=== PATIENT | female | born 1960 | race Caucasian/White ===

== ENCOUNTER → 2017-03-30 | Outpatient (CLI) | payer OTHER ==
[~2017-03-30] MED LIST: CLARINEX-D12 HO1 T12 PO; COLACE 100100 MG/CAP PO; LASIX 20MG TABL20 MG PO; NASONEX SPRAY17 GM NS; NEXIUM24HROTC PO; PAXIL40 MG PO; PREMPRO 0.3 MG-1 TAB PO; SENNA8.6 MG PO; ULTRAM 50MG TAB50 MG PO; XANAX 1MG1 MG PO; ZESTORETIC 12.51 TA1 PO
== END ==
LOC: COL.RAD 09:00
DX: S22.080A Wedge compression fracture of T11-T12 vertebra, initial encounter for closed fracture (principal); K44.9 Diaphragmatic hernia without obstruction or gangrene; Z98.82 Breast implant status
CPT/HCPCS: A9585

== ENCOUNTER 2019-07-26 11:34 | Day surgery (SDC) | payer MEDICARE ==
[~2019-07-26] VITALS: Ht 157.5 cm; Wt 60.1 kg
[2019-07-26] VITALS (10 sets, daily range): BP systolic 91–125; BP diastolic 49–91; PULSE 105–112; TEMP 97.7–98.3
[2019-07-26] MEDS ORDERED: [UNRECOGNIZED DRUG - CODE] PO (12:31)
[2019-07-26] MEDS ORDERED: NORCO 325 MG-7.1 TAB PO (12:32)
[2019-07-26] MEDS ORDERED: PRILOSEC10 MG PO (12:32)
[2019-07-26] MEDS ORDERED: AMITRIPTYLINE H10 M1 PO (12:33)
[2019-07-26] MEDS ORDERED: PAXIL40 MG PO (12:33)
[2019-07-26] MEDS ORDERED: FLEXERIL5 MG PO (12:33)
[2019-07-26] MEDS ORDERED: TYLENOL 325MG325 MG PO (12:34)
[2019-07-26] MEDS ORDERED: GAS RELIEF 8080 MG PO (12:34)
--- NOTE | 2019-07-26 12:40 | NUR ---
Patient arrives to [facility] for pre-op admission. She is in a wheelchair. She is accompanied by her ex-/life partner, Jack. She is drowsy, but oriented when asked orientation questions. The procedure is confirmed with the patient. Verbal consent for surgery is obtained, as she can not sign with her broken limb. She denies questions and verbalizes understanding. Her LP, Jack, assists nursing staff in completing her health history, allergies, and medication list. He is the caregiver at home, and they live together. Her breath sounds are clear bilaterally to auscultation. Her HR is elevated (108), but regular. She is unsure if this is normal for her or not. Other VSS on RA. Afebrile. PERRLA, +3 pupils. Bowel sounds hypoactive. Denies numbness or tingling . Both hands are warm to the touch. Her right arm has a large EMILIANO wrap dressing on it and is in a sling. She complains of chronic back pain. Call light usage is taught and within reach. Jack leaves to go home.
--- NOTE | 2019-07-26 13:41 | NUR ---
Patient rouding complete. She is assisted to use the bedpan. She does not have any output and she is given the calllight. Denies any other needs.
--- NOTE | 2019-07-26 14:49 | NUR ---
Patient rounding completed. Patient is resting comfortably in bed. She asks for assistance in calling her dad. Staff assists her. She denies any other needs at this time.
--- NOTE | 2019-07-26 15:08 | NUR ---
Patient is taken to the PACU for a block with anesthesia. Her belongings (including 1 patient belonging bag, a black purse, and her personal wheelchair) are labeled with patient stickers and taken to PACU.
--- NOTE | 2019-07-26 20:00 | NUR ---
Received report from TOAN Vasquez. Pt arrived to the floor via [employer]. Pt has been sleeping since she has arrived Pt currently has ice to her right shoulder. She has on SCD's she did wake up to her name but went back to sleep. She has IV fluids running at this time. She was able to eat a few ice chips. Lungs sounds were clear and heart sounds were normal S1 and S2 sounds. Pt has her call light within reach and her bed is in lowest position.
--- NOTE | 2019-07-26 22:00 | NUR ---
Pt is currently awake. Pt has been able to tolerate ice chips, water and a few spoons of jello. Pt stated that she does not want anything esle right now she is still working on her jello. She has her call light within reach. She was able to identify jaret i was touching her fingers on her right hand.
[2019-07-27 01:38] VITALS: BP 122/82; PULSE 108; TEMP 97.3
--- NOTE | 2019-07-27 03:00 | NUR ---
Pt has been pretty restless. Pt stated that she is having a hard time falling asleep. Pt has been a little confused about everything. She has stated serveral time that she is in the room that is having construction done. Pt was informed that she was at [facility] and she has had surgery. Pt was complaining of leg pain and a little pain in her surgery. She has her call light within reach.
[2019-07-27 03:14] VITALS: BP 124/88; PULSE 104; TEMP 97.9
--- NOTE | 2019-07-27 05:00 | NUR ---
Pt lying awake in bed. Pt has been confused. Pt has her call light within reach and her bed is in lowest position.
[2019-07-27 07:24] VITALS: BP 127/80; PULSE 106; TEMP 98.6
--- NOTE | 2019-07-27 07:33 | NUR ---
Reported off to TOAN Hooper. Pt has call light within reach and bed is in lowest position.
--- NOTE | 2019-07-27 10:06 | NUR ---
Patient assisted to dress for discharge. Int DC. Ortho rounded & orders obtained. Patient sent with script for [place]. Medication safety reviewed. Home med list discussed as well as last dose taken. We reviewd activity resctictions. Signs & symptoms for report to doctor. Improtance of ice & elevation reviewed. Patient has used bedside commode steady on her feet. Her ride will be here at 10AM.
--- NOTE | 2019-07-27 11:01 | NUR ---
Patient wheeled out with all belongings, her ride is here.
--- NOTE | 2019-07-27 14:12 | NUR ---
[employer] spoke with Sabina at [facility] who advised they already have orders for patient to start services but requested clinical updates. SW faxed. No additional needs at this time.
== END 2019-07-27 11:02 | disposition home or self-care (01) ==
LOC: SURG 11:34 → SDCO 11:34 → SURG 19:04 → SDCO 07-27 11:02
DX: S42.411A Displaced simple supracondylar fracture without intercondylar fracture of right humerus, initial encounter for closed fracture (principal); W22.8XXA Striking against or struck by other objects, initial encounter; J44.9 Chronic obstructive pulmonary disease, unspecified; D64.9 Anemia, unspecified; G43.909 Migraine, unspecified, not intractable, without status migrainosus; I38 Endocarditis, valve unspecified; J40 Bronchitis, not specified as acute or chronic; K21.9 Gastro-esophageal reflux disease without esophagitis; F41.9 Anxiety disorder, unspecified; F32.9 Major depressive disorder, single episode, unspecified; Z88.0 Allergy status to penicillin; M81.0 Age-related osteoporosis without current pathological fracture; F17.210 Nicotine dependence, cigarettes, uncomplicated; Z86.61 Personal history of infections of the central nervous system; Z79.899 Other long term (current) drug therapy; Z88.1 Allergy status to other antibiotic agents; Z88.8 Allergy status to other drugs, medicaments and biological substances; Z83.3 Family history of diabetes mellitus; Z80.9 Family history of malignant neoplasm, unspecified
CPT/HCPCS: OP; C1713; J2250; J2704; J3010; J7120